=== PATIENT | female | born 1995 | race Caucasian/White ===

== ENCOUNTER 2017-08-26 00:10 | Outpatient (CLI) | payer SELFPAY ==
[~2017-08-26] VITALS: Ht 162.6 cm; Wt 76.0 kg
[2017-08-26 00:34] VITALS: BP 127/61
== END 2017-08-26 01:40 | disposition home or self-care (01) ==
LOC: LDOP 00:10
PROVIDERS: ATTEND Obstetrics & Gynecology
DX: O36.8130 Decreased fetal movements, third trimester, not applicable or unspecified (principal); Z3A.31 31 weeks gestation of pregnancy
CPT/HCPCS: 59025; 76815; 81001; 87086; 99201; G0463